=== PATIENT | female | born 1955 | race Caucasian/White ===

== ENCOUNTER → 2018-01-18 | Outpatient (CLI) | payer BC ==
[2018-01-18 13:49] VITALS: BP 131/82; PULSE 85; RESP 16; TEMP 97.7; BMI 31.5
--- NOTE | 2018-01-18 14:27 | P.BASOAP ---
Subjective Progress Note Date: 01/18/18 Principal diagnosis: Morbid obesity Patient returns today for evaluation with complaints of acid reflux. Increasing symptoms lately. She started Prevacid recently and has had resolution of her symptoms. Her PCP was apparently concerned that the band may need to be removed. She currently has 4 mL of fluid in her band. She has a 10 mL band. Symptoms worsen the morning when awakening from sleep. Slight increase in dysphagia to solid foods lately as well. No abdominal pain. Objective - Vital Signs Vital signs: Vital Signs Temp 97.7 F 01/18/18 13:44 Pulse 85 01/18/18 13:44 Resp 16 01/18/18 13:44 BP 131/82 01/18/18 13:44 Pulse Ox Intake & Output 01/17/18 01/18/18 01/18/18 18:59 06:59 18:59 Weight 85.275 kg - Exam Abdomen: Soft, nontender, nondistended Assessment/Plan (1) Obesity Narrative/Plan: Options discussed with the patient. We did discuss the option of esophagram or simply loosening the band to see how her symptoms change. At this time we decided to loosen the band by 0.5 mL. If symptoms persist or recur recommend esophagram. The patient's lap band port was palpated. The site was aseptically prepped. The Akins needle was advanced into the port. A total of 0.5 ml of fluid was Vacuette. Pressure was held and a sterile dressing was applied. Plan: Date: 01/18/18 Initial Weight: 109.316 kg Initial BMI: 40.4 Current Weight: 85.275 kg Current BMI: 31.5 Type of Surgery: Total Volume in Band: 3.5 Previous Volume: Volume Removed: 0.5 Volume Added: Band Size:
== END ==
LOC: BARWHC3 13:30
PROVIDERS: ATTEND Surgery
DX: E66.9 Obesity, unspecified (principal); Z68.31 Body mass index [BMI] 31.0-31.9, adult
CPT/HCPCS: 99212

== ENCOUNTER → 2018-06-21 | Outpatient (CLI) | payer BC ==
[2018-06-21 14:05] VITALS: BP 125/82; PULSE 97; TEMP 97.2; BMI 33.0
--- NOTE | 2018-06-21 14:39 | P.BASOAP ---
Subjective Progress Note Date: 06/21/18 Principal diagnosis: Morbid obesity Patient returns today for evaluation. Last seen in January. Her band was loosened at that time because of reflux. Her symptoms improved. She is now asking for fluid to be added back. She has gained 9 pounds. Objective - Vital Signs Vital signs: Vital Signs Temp 97.2 F L 06/21/18 14:02 Pulse 97 06/21/18 14:02 Resp BP 125/82 06/21/18 14:02 Pulse Ox Intake & Output 06/20/18 06/21/18 06/21/18 18:59 06:59 18:59 Weight 89.358 kg - Exam Abdomen: Soft, nontender, nondistended Assessment/Plan (1) Obesity Narrative/Plan: Patient with decreased restriction. Some weight gain. Hungrier lately. We'll add 0.3 mL for a total of 3.8 mL. The patient's lap band port was palpated. The site was aseptically prepped. The Akins needle was advanced into the port. A total of 0.3 ml of fluid was added for a total of 3.8 mL. Pressure was held and a sterile dressing was applied. Plan: Date: 06/21/18 Initial Weight: 109.316 kg Initial BMI: 40.4 Current Weight: 89.358 kg Current BMI: 33.0 Type of Surgery: Total Volume in Band: 3.8 Previous Volume: Volume Removed: Volume Added: 0.3 Band Size:
== END | disposition home or self-care (01) ==
LOC: BARWHC3 13:32
PROVIDERS: ATTEND Surgery
DX: E66.01 Morbid (severe) obesity due to excess calories (principal); Z68.33 Body mass index [BMI] 33.0-33.9, adult; Z98.84 Bariatric surgery status
CPT/HCPCS: 99212

== ENCOUNTER → 2020-07-02 | Outpatient (CLI) | payer BC ==
[2020-07-02 15:19] VITALS: BP 122/85; PULSE 92; RESP 16; TEMP 98.1; BMI 31.6
--- NOTE | 2020-07-02 16:36 | P.BASOAP ---
Subjective Progress Note Date: 07/02/20 Principal diagnosis: Morbid obesity Patient returns for reevaluation. Last seen June 2018. At that time patient had her band filled from 3.5-3.8. Lately has had worsening reflux. Started Protonix daily with only mild improvement. Mild soreness at the port occasionally. No fevers. No significant vomiting. States she has a very strong family history of acid reflux. Objective - Vital Signs Vital signs: Vital Signs Temp 98.1 F 07/02/20 15:15 Pulse 92 07/02/20 15:15 Resp 16 07/02/20 15:15 BP 122/85 07/02/20 15:15 Pulse Ox Intake & Output 07/01/20 07/02/20 07/02/20 18:59 06:59 18:59 Weight 90.265 kg - Exam Abdomen: Soft, nontender, nondistended Assessment/Plan (1) Obesity Narrative/Plan: Patient with worsening reflux. Discussed options. Band was accessed. She has 4 mL in her band. 1 mL was removed. Upper GI if symptoms of reflux persists. Plan: Date: 07/02/20 Initial Weight: 109.316 kg Initial BMI: 38.2 Current Weight: 90.265 kg Current BMI: 31.6 Type of Surgery: Total Volume in Band: 3.8 Previous Volume: Volume Removed: Volume Added: Band Size:
== END ==
LOC: BARWHC3 14:39
PROVIDERS: ATTEND Surgery
DX: E66.01 Morbid (severe) obesity due to excess calories (principal); Z68.31 Body mass index [BMI] 31.0-31.9, adult; K21.9 Gastro-esophageal reflux disease without esophagitis
CPT/HCPCS: 99212

== ENCOUNTER → 2022-02-03 | Outpatient (CLI) | payer MEDICARE ==
[2022-02-03 12:48] VITALS: BP 137/71; PULSE 94; RESP 16; TEMP 98; BMI 36.0
--- NOTE | 2022-02-03 13:16 | P.BASOAP ---
Subjective Progress Note Date: 02/03/22 Principal diagnosis: Morbid obesity Patient returns for recheck. Since last visit she has gained a half a pound. Patient describes slightly inadequate restriction. No nausea or vomiting. No GERD. Would like a fill. Objective - Vital Signs Vital signs: Vital Signs Temp 98 F 02/03/22 12:46 Pulse 94 02/03/22 12:46 Resp 16 02/03/22 12:46 BP 137/71 02/03/22 12:46 Pulse Ox FiO2 Intake & Output 02/02/22 02/03/22 02/03/22 18:59 06:59 18:59 Weight 97.522 kg - Exam Abdomen: Soft, nontender, nondistended Assessment/Plan (1) Obesity Narrative/Plan: Patient would like to proceed with a lap band fill. We'll add 0.3 for a total of 3.8 mL. Previously was too tight at 4 mL. The patient's lap band port was palpated. The site was aseptically prepped. The Akins needle was advanced into the port. A total of 0.3 ml of fluid was added. Pressure was held and a sterile dressing was applied. Plan: Date: 02/03/22 Initial Weight: 109.316 kg Initial BMI: 40.4 Current Weight: 97.522 kg Current BMI: 36.0 Type of Surgery: Adjustable Gastric Banding Total Volume in Band: 3.5 Previous Volume: Volume Removed: Volume Added: Band Size:
== END | disposition home or self-care (01) ==
LOC: BARWHC3 12:23
PROVIDERS: ATTEND Surgery
DX: E66.01 Morbid (severe) obesity due to excess calories (principal); Z68.36 Body mass index [BMI] 36.0-36.9, adult
CPT/HCPCS: 99212

== ENCOUNTER → 2023-07-06 | Outpatient (CLI) | payer MEDICARE ==
[2023-07-06 16:03] VITALS: BP 117/76; PULSE 76; TEMP 98.1; BMI 36.0
--- NOTE | 2023-07-06 17:09 | P.BASOAP ---
Subjective Progress Note Date: 07/06/23 Principal diagnosis: Morbid obesity Patient returns for recheck. Last seen in January 2022. Patient had fluid added to her band at that time. She is currently at 3.8 cc. Patient says she has had worsening nighttime reflux and heartburn. Patient is not interested in band removal. She has not had an esophagram in quite some time. Patient having some dysphagia and vomiting at times. Objective - Vital Signs Vital signs: Vital Signs Temp 98.1 F 07/06/23 15:41 Pulse 76 07/06/23 15:41 Resp BP 117/76 07/06/23 15:41 Pulse Ox FiO2 Intake & Output 07/05/23 07/06/23 07/06/23 18:59 06:59 18:59 Weight 97.522 kg - Exam Abdomen: Soft, nontender, nondistended Assessment/Plan (1) Obesity Narrative/Plan: 67-year-old female with obesity and dysphagia. Will empty the band at this time. Will plan upper GI next visit. The patient's lap band port was palpated. The site was aseptically prepped. The Akins needle was advanced into the port. A total of 4 ml of fluid was removed. Band is now empty. Pressure was held and a sterile dressing was applied. Plan: Date: 07/06/23 Initial Weight: 109.316 kg Initial BMI: 40.4 Current Weight: 97.522 kg Current BMI: 36.0 Type of Surgery: Total Volume in Band: 0 Previous Volume: Volume Removed: 4 Volume Added: Band Size:
== END ==
LOC: BARWHC3 15:05
PROVIDERS: ATTEND Surgery
DX: E66.9 Obesity, unspecified (principal); R13.10 Dysphagia, unspecified; K21.9 Gastro-esophageal reflux disease without esophagitis; R11.10 Vomiting, unspecified; Z46.51 Encounter for fitting and adjustment of gastric lap band; Z98.84 Bariatric surgery status; Z68.36 Body mass index [BMI] 36.0-36.9, adult; Z88.1 Allergy status to other antibiotic agents; Z88.5 Allergy status to narcotic agent; Z88.8 Allergy status to other drugs, medicaments and biological substances
CPT/HCPCS: 43999

== ENCOUNTER → 2023-08-16 | Outpatient (CLI) | payer MEDICARE ==
--- NOTE | 2023-08-16 11:59 | FL ---
EXAMINATION TYPE: FL barium swallow DATE OF EXAM: 08/16/2023 CLINICAL HISTORY: Dysphasia TECHNIQUE: A double contrast esophagram is performed utilizing air and barium. A total of 47 second s of fluoroscopic time was utilized during procedure and 31 images obtained. Total dose area product (DAP) in uGy*m?, mGy*cm? (or similar) Not provided. COMPARISON: None FINDINGS: Barium was swallowed without difficulty and passed into the esophagus without delay. There was evidence of tertiary contractions of the esophagus and a small hiatal hernia. No significant aaron roesophageal reflux. No evidence of obstruction or extravasation. Posterior impression of the esophag us at the level the cervical level appears to be secondary to anterior hypertrophic spurs. IMPRESSION: 1. No evidence of obstruction or extravasation 2. Small hiatal hernia. No evidence of reflux under fluoroscopy. 3. There is posterior impression of the upper cervical esophagus due to the hypertrophic spurring of the cervical spine. 4. Tertiary contractions of the esophagus compatible with dysmotility.
== END | disposition home or self-care (01) ==
LOC: RADUSWWP 09:39
PROVIDERS: ATTEND Surgery
DX: K44.9 Diaphragmatic hernia without obstruction or gangrene (principal); R13.10 Dysphagia, unspecified; R47.02 Dysphasia; M46.02 Spinal enthesopathy, cervical region; M47.812 Spondylosis without myelopathy or radiculopathy, cervical region
CPT/HCPCS: 74220

== ENCOUNTER → 2023-08-24 | Outpatient (CLI) | payer MEDICARE ==
[2023-08-24 13:59] VITALS: BP 119/78; PULSE 77; TEMP 98.2; BMI 36.0
--- NOTE | 2023-08-24 16:19 | P.BASOAP ---
Subjective Progress Note Date: 08/24/23 Principal diagnosis: Morbid obesity Patient returns for recheck. Her band was emptied of 4 cc of fluid. Patient has no symptoms and no dysphagia. All of her symptoms gone after emptying band. She would like more fluid added. Objective - Vital Signs Vital signs: Vital Signs Temp 98.2 F 08/24/23 13:26 Pulse 77 08/24/23 13:26 Resp BP 119/78 08/24/23 13:26 Pulse Ox FiO2 Intake & Output 08/23/23 08/24/23 08/24/23 18:59 06:59 18:59 Weight 97.522 kg - Exam Abdomen: Soft, nontender, nondistended Assessment/Plan (1) Obesity Narrative/Plan: 68-year-old female interested in having fluid added back to her band. Will add 2 cc at this time. The patient's lap band port was palpated. The site was aseptically prepped. The Akins needle was advanced into the port. A total of 2 ml of fluid was added. Pressure was held and a sterile dressing was applied. Plan: Date: 08/24/23 Initial Weight: 109.316 kg Initial BMI: 40.4 Current Weight: 97.522 kg Current BMI: 36.0 Type of Surgery: Total Volume in Band: 0 Previous Volume: Volume Removed: Volume Added: Band Size:
== END ==
LOC: BARWHC3 13:11
PROVIDERS: ATTEND Surgery
DX: E66.01 Morbid (severe) obesity due to excess calories (principal); Z46.51 Encounter for fitting and adjustment of gastric lap band; Z98.84 Bariatric surgery status; Z68.36 Body mass index [BMI] 36.0-36.9, adult; Z88.1 Allergy status to other antibiotic agents; Z88.5 Allergy status to narcotic agent; Z88.8 Allergy status to other drugs, medicaments and biological substances
CPT/HCPCS: 43999

== ENCOUNTER → 2023-10-05 | Outpatient (CLI) | payer MEDICARE ==
[2023-10-05 15:32] VITALS: BP 126/72; PULSE 71; TEMP 98.2; BMI 35.9
--- NOTE | 2023-10-05 15:36 | P.BASOAP ---
Subjective Progress Note Date: 10/05/23 Principal diagnosis: Morbid obesity Patient returns for recheck. Was last seen 1 month ago. Her band had been emptied of 4 cc. Last visit 2 cc was added back to the band. Says she still feels significant hunger. Wants to try going up to 3 cc. No nausea or vomiting. No GERD. Objective - Vital Signs Vital signs: Vital Signs Temp 98.2 F 10/05/23 15:28 Pulse 71 10/05/23 15:28 Resp BP 126/72 10/05/23 15:28 Pulse Ox FiO2 Intake & Output 10/04/23 10/05/23 10/05/23 18:59 06:59 18:59 Weight 97.069 kg - Exam Abdomen: Soft, nontender, nondistended Assessment/Plan (1) Obesity Narrative/Plan: Patient doing fairly well at this time. Wants another Lap-Band fill. Will go u p to 3 cc. The patient's lap band port was palpated. The site was aseptically prepped. The Akins needle was advanced into the port. A total of 1 ml of fluid was added for a total of 3 cc. Pressure was held and a sterile dressing was applied. Plan: Date: 10/05/23 Initial Weight: 109.316 kg Initial BMI: 40.4 Current Weight: 97.069 kg Current BMI: 35.9 Type of Surgery: Total Volume in Band: 2 Previous Volume: Volume Removed: Volume Added: Band Size:
== END ==
LOC: BARWHC3 13:50
PROVIDERS: ATTEND Surgery
DX: E66.01 Morbid (severe) obesity due to excess calories (principal); Z46.51 Encounter for fitting and adjustment of gastric lap band; Z98.84 Bariatric surgery status; Z88.1 Allergy status to other antibiotic agents; Z88.5 Allergy status to narcotic agent; Z88.8 Allergy status to other drugs, medicaments and biological substances; Z68.35 Body mass index [BMI] 35.0-35.9, adult
CPT/HCPCS: 43999